=== PATIENT | female | born 1960 | race Caucasian/White ===

== ENCOUNTER 2023-02-05 12:13 | Outpatient (CLI) | payer BC, SELFPAY | END 2023-02-05 12:14 | disposition home or self-care (01) | LOC: CHSIMG 12:21 | PROVIDERS: PCP Family Medicine; Visit Provider Physician Assistant | DX: M25.561 Pain in right knee (principal) | CPT/HCPCS: 73562 ==

== ENCOUNTER 2023-04-06 13:16 | Outpatient (CLI) | payer BC, SELFPAY ==
--- NOTE | ~2023-04-06 | US_ITS ---
EXAMINATION: US arterial duplex LE RT DATE: 04/06/2023 14:44 INDICATION: Right groin pain post recent cardiac catheterization. TECHNIQUE: Multiple grayscale and Doppler ultrasound images of the right groin were obtained. COMPARISON: None FINDINGS: The right common femoral artery, superficial femoral artery and profunda femoral artery are normal wi th triphasic waveforms and brisk systolic upstrokes. The right common femoral and superficial femoral veins are also normal with no arterialization to suggest AV fistula formation. 2.8 x 2.5 x 1.1 cm an echoic likely hematoma in the superficial subcutaneous fat with some surrounding edema. No evident in ternal vascular flow or communication to the vessels to suggest pseudoaneurysm. IMPRESSION: 1. Small hematoma in the subcutaneous fat at the right groin. No pseudoaneurysm. Reviewed, dictated and finalized at location A. [employer] IMPRESSION: 1. Small hematoma in the subcutaneous fat at the right groin. No pseudoaneurysm .
== END 2023-04-06 13:17 | disposition home or self-care (01) ==
PROVIDERS: PCP Family Medicine; Visit Provider Internal Medicine Cardiovascular Disease
DX: R10.31 Right lower quadrant pain (principal); Z09 Encounter for follow-up examination after completed treatment for conditions other than malignant neoplasm
CPT/HCPCS: 93926